=== PATIENT | female | born 1960 | race Caucasian/White ===

== ENCOUNTER 2018-02-17 07:22 | Day surgery (SDC) | payer OTHER ==
[~2018-02-17] VITALS: Ht 162.6 cm; Wt 89.8 kg
[2018-02-17] MEDS ORDERED: fentaNYL CITRATE 250 MCG/5 ML AMP IV ONE (08:40)
[2018-02-17] MEDS ORDERED: NEOSTIGMINE METHYLSULFATE 1 MG/ML, 10 ML VIAL IVP ONE (08:40)
[2018-02-17] MEDS ORDERED: GLYCOPYRROLATE 0.2 MG/ML VIAL IJ ONE (08:40)
[2018-02-17] MEDS ORDERED: BUPIVACAINE /PF 0.25% 30 ML VIAL INJ ONE (08:40)
[2018-02-17] MEDS ORDERED: WATER FOR IRRIGATION,STERILE 1,000 ML IRRIG.SOLN IR ONE (08:40)
[2018-02-17] MEDS ORDERED: ONDANSETRON HCL 4 MG/2 ML VIAL IVP ONE ×2 (08:40→13:00)
[2018-02-17] MEDS ORDERED: ROCURONIUM BROMIDE 10 MG/ML (ZEMURON) IV ONE (08:40)
[2018-02-17] MEDS ORDERED: SEVOFLURANE 15 MIN GAS INH ONE (08:40)
[2018-02-17] MEDS ORDERED: CEFAZOLIN 1 GM IVPB PREMIX 50 ML IV ONE (08:40)
[2018-02-17] MEDS ORDERED: MIDAZOLAM HCL 5 MG/5 ML VIAL IVP ONE (08:40)
[2018-02-17] MEDS ORDERED: PROPOFOL 200MG/ 20ML VIAL (DIPRIVAN) IV ONE (08:40)
[2018-02-17] MEDS ORDERED: NS 1000 ML IV.SOLN IV ONE (08:40)
[2018-02-17] MEDS ORDERED: LR 1,000 ML IV.SOLN IV ONE (08:40)
[2018-02-17] MEDS ORDERED: IOHEXOL 300mgI/mL,100 ML INFUS..BTL IV ONE (08:40)
[2018-02-17] MEDS ORDERED: LR 1,000 ML IV SCH (09:33)
[2018-02-17] MEDS ORDERED: MORPHINE 4 MG/ML INJ. SYRINGE IVP PRN ×3 (09:45)
[2018-02-17] MEDS ORDERED: D5/0.45 NS 1,000 ML IV SCH (09:53)
[2018-02-17] MEDS ORDERED: HYDROcodone/ACETAMIN 5-325 MG TAB (NORCO/ VICODIN) PO PRN ×2 (10:00)
[2018-02-17] MEDS ORDERED: HYDROmorphone 1 MG INJ. 1 MG/ML AMPUL IVP PRN (10:00)
[2018-02-17] MEDS ORDERED: ACETAMINOPHEN/CODEINE 300 MG-30 MG TABLET PO PRN (10:00)
[2018-02-17 11:05] VITALS: BP_SYST 136
== END 2018-02-17 13:30 | disposition home or self-care (01) ==
LOC: SDS 07:22
PROVIDERS: ATTEND Colon & Rectal Surgery
DX: K80.10 Calculus of gallbladder with chronic cholecystitis without obstruction (principal); I10 Essential (primary) hypertension; E66.3 Overweight; F32.9 Major depressive disorder, single episode, unspecified; K21.9 Gastro-esophageal reflux disease without esophagitis; E03.9 Hypothyroidism, unspecified; F41.9 Anxiety disorder, unspecified; Z98.890 Other specified postprocedural states; Z88.2 Allergy status to sulfonamides; E78.5 Hyperlipidemia, unspecified; Z88.8 Allergy status to other drugs, medicaments and biological substances; Z91.040 Latex allergy status; Z79.899 Other long term (current) drug therapy; Z68.32 Body mass index [BMI] 32.0-32.9, adult
CPT/HCPCS: 47563; 74300; 88304; C1727; C1758; J0690; J2250; J2270; J2405; J2704; J2710; J3010; J3490 ×2; J7030; J7120; Q9967 ×2